=== PATIENT | female | born 1960 | race Caucasian/White ===

== ENCOUNTER → 2019-05-16 | Outpatient (CLI) | payer OTHER ==
[~2019-05-16] MED LIST: ALPHA LIPOIC A200 MG; ANAS1 PO; Ativan1 MG PO; CIPR500 PO; Celexa40 MG PO; HYDACE5 PO; LEVFLO500 PO; METO10 PO; MULVITMIND PO; ONDA4 PO; ONDA8ODT MM; OXYACE5T PO; PROM25 PO; PROM25S PR; Percocet 5-3251 EACH PO; RXHYDACE PO; RXONDA4ODT MM; RXPROM25 PO; Red Yeast Rice600 MG; UBID10
== END | disposition home or self-care (01) ==
LOC: PLD 08:09 → LAB SHORT 08:09
DX: D48.5 Neoplasm of uncertain behavior of skin (principal)
CPT/HCPCS: 88305

== ENCOUNTER → 2019-10-23 | Outpatient (CLI) | payer OTHER ==
[2019-10-25 19:09] LABS: HPV 16 Positive (Negative); HPV 18 Negative (Negative); HPV OTHER HR TYPES Negative (Negative)
== END | disposition home or self-care (01) ==
LOC: LAB 11:07 → LAB SHORT 11:07
PROVIDERS: Advanced Practice Midwife
DX: Z01.419 Encounter for gynecological examination (general) (routine) without abnormal findings (principal)
CPT/HCPCS: 87624; G0123

== ENCOUNTER 2020-10-07 06:10 | Emergency (ER) | payer OTHER ==
[~2020-10-07] VITALS: Ht 154.9 cm; Wt 77.1 kg
[~2020-10-07 06:10] MED LIST changes: +PRAVASTATIN SOD40 MG PO
[2020-10-07 06:59] LABS: BASOPHILS ABSOLUTE AUTO 0.08 K/mm3 (0.00-0.23); BASOPHILS PERCENT AUTO 1 % (0-2); EOSINOPHILS ABSOLUTE AUTO 0.22 K/mm3 (0.00-0.68); EOSINOPHILS PERCENT AUTO 2 % (0-6); Hematocrit 46.4 % (33.0-51.0); Hemoglobin 15.6 g/dL (11.5-16.0); IMMATURE GRAN ABSOLUTE AUTO 0.03 K/mm3 (0.00-0.10); IMMATURE GRAN PERCENT AUTO 0 % (0-1); LYMPHOCYTES ABSOLUTE AUTO 2.02 K/mm3 (0.84-5.20); LYMPHOCYTES PERCENT AUTO 21 % (21-46); MONOCYTES PERCENT AUTO 4 % (4-13); Mean Corpuscular HGB 31.1 pg (26.0-34.0); Mean Corpuscular HGB Conc 33.6 g/dL (31.5-36.5); Mean Corpuscular Volume 92 fL (80-100); Mean Platelet Volume 10.1 fL (9.1-12.4); NEUTROPHILS PERCENT AUTO 72 % (41-73); Platelet Count 257 K/mm3 (150-400); RDW Coefficient Variation 12.5 % (11.7-14.2); RDW Standard Deviation 42.4 fL (35.1-46.3); Red Blood Cell Count 5.02 M/mm3 (3.80-5.20); White Blood Cell Count 9.65 K/mm3 (4.00-11.30)
[2020-10-07 07:16] LABS: Alanine Aminotransfer (ALT/SGP 57 U/L (12-78); Albumin, Blood 4.1 g/dL (3.4-5.0); Albumin/Globulin Ratio 1.1 (0.8-1.8); Alk Phos 65 U/L (50-136); Anion Gap 9 mmol/L (6-16); Aspartate Aminotrans (AST/SGOT 28 U/L (12-37); Bilirubin, Total 0.3 mg/dL (0.1-1.0); Blood Urea Nitrogen 16 mg/dL (8-24); Bun/Creatinine Ratio 20.4 (12.0-20.0); CO2, Blood 26 mmol/L (21-32); Calcium, Blood 9.7 mg/dL (8.5-10.1); Chloride, Blood 103 mmol/L (98-108); Creatinine, Blood 0.78 mg/dL (0.40-1.00); Globulin, Blood 3.8 g/dL (2.2-4.0); Glomerular Filtration Rate >60 (60-); Glucose, Blood 190 mg/dL (70-99); Potassium, Blood 3.4 mmol/L (3.5-5.5); Sodium, Blood 138 mmol/L (136-145); Total Protein, Blood 7.9 g/dL (6.4-8.2)
[2020-10-07] MEDS ORDERED: ONDA4ODT MM (08:44)
[2020-10-07] MEDS ORDERED: Phenergan25 M1 PO (08:44)
[2020-10-09] MEDS ORDERED: PANT40 PO (08:06)
[2020-10-09] MEDS ORDERED: SUCR1 PO (08:06)
[2020-10-09] MEDS ORDERED: HYDR1TAB94 PO (08:06)
== END 2020-10-07 08:54 | disposition home or self-care (01) ==
LOC: ER 06:10
PROVIDERS: Emergency Medicine
DX: R10.13 Epigastric pain (principal); R10.33 Periumbilical pain; E78.00 Pure hypercholesterolemia, unspecified; Z88.0 Allergy status to penicillin; Z88.2 Allergy status to sulfonamides; Z79.899 Other long term (current) drug therapy
CPT/HCPCS: 36415; 74177; 80053; 83690; 85025; 93005; 93010; 96374-59; 96375; 99285-25; J1630; J2550; Q9967

== ENCOUNTER 2020-10-09 05:37 | Emergency (ER) | payer OTHER ==
[~2020-10-09] VITALS: Ht 167.6 cm; Wt 81.7 kg
[~2020-10-09 05:37] MED LIST changes: +ONDA4ODT MM; +Phenergan25 M1 PO
[2020-10-09] MEDS ORDERED: PANT40 PO ×2 (08:06)
[2020-10-09] MEDS ORDERED: SUCR1 PO ×2 (08:06)
[2020-10-09] MEDS ORDERED: HYDR1TAB94 PO ×2 (08:06)
== END 2020-10-09 08:36 | disposition home or self-care (01) ==
LOC: ER 05:37
DX: K29.70 Gastritis, unspecified, without bleeding (principal); E78.00 Pure hypercholesterolemia, unspecified; Z88.2 Allergy status to sulfonamides; Z88.0 Allergy status to penicillin; Z79.899 Other long term (current) drug therapy
CPT/HCPCS: 36415; 96374; 96375; 99283-25; A9270; C9113; J0780; J2405; J7030

== ENCOUNTER 2020-10-11 13:13 | Observation (INO) | payer OTHER ==
[~2020-10-11] VITALS: Ht 154.9 cm; Wt 77.1 kg
[~2020-10-11 13:13] MED LIST changes: +HYDR1TAB94 PO; +PANT40 PO; +SUCR1 PO
[2020-10-11 13:44] LABS: BASOPHILS ABSOLUTE AUTO 0.08 K/mm3 (0.00-0.23); BASOPHILS PERCENT AUTO 1 % (0-2); EOSINOPHILS ABSOLUTE AUTO 0.21 K/mm3 (0.00-0.68); EOSINOPHILS PERCENT AUTO 2 % (0-6); Hematocrit 48.2 % (33.0-51.0); Hemoglobin 16.4 g/dL (11.5-16.0); IMMATURE GRAN ABSOLUTE AUTO 0.07 K/mm3 (0.00-0.10); IMMATURE GRAN PERCENT AUTO 1 % (0-1); LYMPHOCYTES PERCENT AUTO 30 % (21-46); MONOCYTES ABSOLUTE AUTO 1.02 K/mm3 (0.16-1.47); MONOCYTES PERCENT AUTO 8 % (4-13); Mean Corpuscular HGB 31.2 pg (26.0-34.0); Mean Corpuscular Volume 92 fL (80-100); Mean Platelet Volume 9.9 fL (9.1-12.4); NEUTROPHILS ABSOLUTE AUTO 7.43 K/mm3 (1.96-9.15); NEUTROPHILS PERCENT AUTO 59 % (41-73); Platelet Count 297 K/mm3 (150-400); RDW Coefficient Variation 12.2 % (11.7-14.2); RDW Standard Deviation 41.6 fL (35.1-46.3); Red Blood Cell Count 5.25 M/mm3 (3.80-5.20); White Blood Cell Count 12.51 K/mm3 (4.00-11.30)
[2020-10-11 14:07] LABS: Albumin, Blood 3.9 g/dL (3.4-5.0); Bilirubin, Total 0.7 mg/dL (0.1-1.0); Bun/Creatinine Ratio 15.2 (12.0-20.0); Calcium, Blood 9.1 mg/dL (8.5-10.1); Creatinine, Blood 1.38 mg/dL (0.40-1.00); Globulin, Blood 3.8 g/dL (2.2-4.0); Potassium, Blood 3.1 mmol/L (3.5-5.5); Total Protein, Blood 7.7 g/dL (6.4-8.2); Troponin I 0.076 ng/mL (0.000-0.040)
[2020-10-11 15:16] LABS: CHOL/HDL RATIO 6.3; Cholesterol 323 mg/dL (50-200); HDL Cholesterol 51 mg/dL (>39); LDL/HDL RATIO 4.3; Low Density Lipoprotein Chol 222 mg/dL (0-110); Triglycerides 251 mg/dL (30-160); Very Low Density Lipoprot Chol 50 mg/dL (6-32)
--- NOTE | 2020-10-11 16:41 | NUR ---
CALLED TWICE AND ED NURSE WILL CALL LATER WHEN AVAILABLE
[2020-10-11 16:59] LABS: Source, Urine Clean Catch
[2020-10-11 17:02] LABS: Appearance, Urine Clear (Clear); Bilirubin, Urine Neg (Neg); Blood, Urine 2+ (Neg); Color, Urine Yellow (P-Yellow); Glucose Qualitative, Urine Neg (Neg); Ketones, Urine Neg (Neg); Leukocyte Esterase, Urine Neg (Neg); Nitrite, Urine Neg (Neg); Protein, Urine 1+ (Neg); Specific Gravity, Urine 1.005 (1.003-1.022); Urobilinogen, Urine NORM (Normal); pH, Urine 6.5 (5.0-8.0)
[2020-10-11 17:10] LABS: Bacteria Mod /hpf; Red Blood Cells, Urine 0-2 /hpf (0-2); Squamous Epithelial Cells Few /hpf (Few)
--- NOTE | 2020-10-11 18:34 | NUR ---
PT IS A 60YO WOMAN WHO IS ALERT AND ORIENTED. WHO CAME HERE FOR PRE-SYNCOPAL EPISODE. PT IS FULL CODE. PT BP STABLE. PT HAS A PMH OF PANCREATITIS, BREAST CANCER, HYPERLIPIDEMIA, AND HYPERTRIGLYCIDES. PT IS ON TELE NS PER TELE. NO O2; STABLE ON FEET; PT DID NOT HAD ANY FALLS AT HOME. SKIN INTACT. PT STATED SHE DRINKS BEER EVERY DAY ABOUT 16OZ AT A TIME; AND LAST DRINK WAS 3 WEEKS AGO, NOT HAD ANY SINCE THEN. PT HAS 18G ON RAC. DENIES ANY PAIN OR SOB. PT C/O OF NOT HAVING BM 5DAYS AGO BUT PASSING GAS. PT HAS MIRALAX PRN; PT STATED SHE WILL WAIT TONIGHT TO TAKE IT. PT RECEIVED K-RIDER FOR LOW K OF 3.1. PT HAS ELEVATED TROP OF 0.076 THAT IS DUE TO DEHYDRATION. BED IS IN THE LOWEST POSITION AND CALL LIGHT WITHIN REACH.
[2020-10-12 05:15] LABS: BASOPHILS ABSOLUTE AUTO 0.07 K/mm3 (0.00-0.23); BASOPHILS PERCENT AUTO 1 % (0-2); EOSINOPHILS ABSOLUTE AUTO 0.31 K/mm3 (0.00-0.68); EOSINOPHILS PERCENT AUTO 4 % (0-6); Hematocrit 44.2 % (33.0-51.0); Hemoglobin 14.8 g/dL (11.5-16.0); IMMATURE GRAN ABSOLUTE AUTO 0.03 K/mm3 (0.00-0.10); IMMATURE GRAN PERCENT AUTO 0 % (0-1); LYMPHOCYTES ABSOLUTE AUTO 2.93 K/mm3 (0.84-5.20); LYMPHOCYTES PERCENT AUTO 36 % (21-46); MONOCYTES ABSOLUTE AUTO 0.75 K/mm3 (0.16-1.47); MONOCYTES PERCENT AUTO 9 % (4-13); Mean Corpuscular HGB 31.4 pg (26.0-34.0); Mean Corpuscular HGB Conc 33.5 g/dL (31.5-36.5); Mean Corpuscular Volume 94 fL (80-100); Mean Platelet Volume 10.4 fL (9.1-12.4); NEUTROPHILS ABSOLUTE AUTO 4.16 K/mm3 (1.96-9.15); NEUTROPHILS PERCENT AUTO 50 % (41-73); Platelet Count 210 K/mm3 (150-400); RDW Coefficient Variation 12.3 % (11.7-14.2); RDW Standard Deviation 42.7 fL (35.1-46.3); Red Blood Cell Count 4.72 M/mm3 (3.80-5.20); White Blood Cell Count 8.25 K/mm3 (4.00-11.30)
[2020-10-12 05:38] LABS: Magnesium, Blood 2.1 mg/dL (1.6-2.4)
[2020-10-12 05:40] LABS: Alanine Aminotransfer (ALT/SGP 43 U/L (12-78); Albumin/Globulin Ratio 0.9 (0.8-1.8); Alk Phos 68 U/L (50-136); Anion Gap 4 mmol/L (6-16); Aspartate Aminotrans (AST/SGOT 25 U/L (12-37); Bilirubin, Total 0.6 mg/dL (0.1-1.0); Blood Urea Nitrogen 15 mg/dL (8-24); Bun/Creatinine Ratio 15.9 (12.0-20.0); CO2, Blood 23 mmol/L (21-32); Calcium, Blood 8.5 mg/dL (8.5-10.1); Chloride, Blood 111 mmol/L (98-108); Creatinine, Blood 0.95 mg/dL (0.40-1.00); Globulin, Blood 3.3 g/dL (2.2-4.0); Glomerular Filtration Rate >60 (60-); Glucose, Blood 100 mg/dL (70-99); Potassium, Blood 4.2 mmol/L (3.5-5.5); Sodium, Blood 138 mmol/L (136-145); Total Protein, Blood 6.3 g/dL (6.4-8.2)
--- NOTE | 2020-10-12 05:57 | NUR ---
PATIENT SLEPT WELL AFTER RECEIVING ONE DOSE OF NORCO FOR RUQ PAIN AT HS. SHE WANTED TO MAKE SURE THAT HOSPITALIST WAS AWARE THAT SHE QUIT HER CELEXA THAT SHE HAS TAKEN FOR YEARS COLD TURKEY A LITTLE OVER A WEEK AGO. OTHERWISE, NO CHANGES
--- NOTE | 2020-10-12 07:57 | NUR ---
pt sitting up in bed awake, a/ox3, pleasant and coopertive with care, follows commands well, denies any complaints of chest pain, or nausia states she feels much better, sleept off and on, lungs are clear t/o, resp even and unlaobred, no cough noted, hrr, tele in place running sr per monitor, see strip, no edema noted, ppp+1, cap refill <3sec, vs stable, afebrile, iv sites is clear and patent, btx4, abd flat soft nontender, voids without diff, reports no bm in 5 days, will give bowel care, skin c/w/d, juliet, aryan, call light in reach.
[2020-10-12 08:09] LABS: Troponin I 0.064 ng/mL (0.000-0.040)
--- NOTE | 2020-10-12 11:47 | NUR ---
pt reports she had a bm, is feeling ok, speaking on the phone, no acute changes. call light in reach.
--- NOTE | 2020-10-12 18:34 | NUR ---
SUMMARY PT IS A&O X4. NO ACUTE CHANGES THROUGH THE DAY. VSS, ON RA. PT IS INDEPENDENT IN THE ROOM. NO C/O CP/PRESSURE OR EPIGASTRIC PAIN. PT HAD QUESTIONS REGARDING HER CELEXA, SHE WAS ENC TO TO WRITE ALL QUESTIONS DOWN FOR THE PROVIDER. CELEXA WAS D/C THIS AM PER PT REQUEST.
--- NOTE | 2020-10-13 04:46 | NUR ---
SHIFT SUMMARY A/OX4, IND TO BATHROOM. PT REPORTS GREAT IMPROVEMENT IN PREVIOUS EPIGASTRIC PAIN. APPEARED TO SLEEP T/O THE NIGHT. VSS, NO ACUTE CHANGES AT THIS TIME. BED IN LOWEST POSITION WITH CALL LIGHT IN REACH. WILL CONTINUE TO MONITOR AND REPROT TO ONCOMING RN.
--- NOTE | 2020-10-13 14:45 | NUR ---
10/13/20- PER CHART REVIEW WITH DR. LINARES, PT IS STABLE TO DISCHARGE HOME. MET WITH PT AND SHE REPORTS THAT SHE WAS INDEPENDENT PRIOR TO COMING INTO THE HOSPITAL AND SHE HAD NOT CAREGIVERS OR HOME HEALTH. PT LIVES WITH HER PARTNER "LEOPOLDO" AND HER SON "CLAIR" ALSO CHECKS IN ON HER. SHE REPORTS THAT HE HOME IS A SINGLE STORY HOME, THAT HAS WORKING UTILITIES AND BARRIERS TO GETTING INTO THE HOME. PT STILL DRIVES AND IS ABLE TO TAKE HERSELF TO HER APPTS AND GET HER MEDICATIONS FROM [facility] IN [place]. PT DOES NOT HAVE A POA AND HER NEXT OF KIN IS PARTNER, LEOPOLDO. SHE DOES NOT HAVE ANY DME NEEDS. PT REQUESTED AN APPT BE MADE FOR HER WITH [facility] PRIOR TO HER DISCHARGING. SHE HAS AN APPT WITH [facility]Y ON 10/19/20 @ 12:00. REVIEWED ROBERT LETTER AND APPT TIME WITH PT. -SONIA
--- NOTE | 2020-10-13 15:47 | NUR ---
PATIENT DISCHARGED TO HOME WITH SPOUSE. IV SALINE LOCK REMOVED WITHOUT INCIDENT. VERBALIZED UNDERSTANDING OF D/C INSTRUCTIONS. OFF UNIT VIA W/C WITH D/C VOLUNTEER AT [id number].
== END 2020-10-13 15:40 | disposition home or self-care (01) ==
LOC: ER 13:13 → ERHOLD 13:14 → MEDS 17:28
PROVIDERS: Emergency Medicine; Internal Medicine; ADMIT Family Medicine
DX: R55 Syncope and collapse (principal); E86.0 Dehydration; N17.9 Acute kidney failure, unspecified; K85.90 Acute pancreatitis without necrosis or infection, unspecified; E78.5 Hyperlipidemia, unspecified; K27.9 Peptic ulcer, site unspecified, unspecified as acute or chronic, without hemorrhage or perforation; I24.8 Other forms of acute ischemic heart disease; E87.6 Hypokalemia; R73.03 Prediabetes; K59.00 Constipation, unspecified; F32.9 Major depressive disorder, single episode, unspecified; Z87.891 Personal history of nicotine dependence; Z85.3 Personal history of malignant neoplasm of breast
CPT/HCPCS: 36415; 80053; 80061; 81001; 82947; 83036; 83690; 83735; 84484; 85025; 93005; 93010; 96365; 96366; 96372; 96372-59; 96375; 99285-25; A9270; G0378; J1650; J3480; J7030

== ENCOUNTER 2020-12-03 06:45 | Day surgery (SDC) | payer OTHER ==
[~2020-12-03] VITALS: Ht 154.9 cm; Wt 71.8 kg
[~2020-12-03 06:45] MED LIST changes: +Acetaminophen650 M1 PO; +CITA20 PO; +Colace100 MG PO; +MIRALAX PO; +POTCHL20ER PO
== END 2020-12-03 08:48 | disposition home or self-care (01) ==
LOC: ORSCSDS 06:45
PROVIDERS: Surgery
PROC: 0DBL8ZX Excision of Transverse Colon, Via Natural or Artificial Opening Endoscopic, Diagnostic (ICD-10-PCS; principal; 2020-12-03 08:00)
PROC: 0DBC8ZX Excision of Ileocecal Valve, Via Natural or Artificial Opening Endoscopic, Diagnostic (ICD-10-PCS; principal; 2020-12-03 08:00)
PROC: 0DBH8ZX Excision of Cecum, Via Natural or Artificial Opening Endoscopic, Diagnostic (ICD-10-PCS; principal; 2020-12-03 08:00)
PROC: 0DBP8ZX Excision of Rectum, Via Natural or Artificial Opening Endoscopic, Diagnostic (ICD-10-PCS; principal; 2020-12-03 08:00)
PROC: 0DB68ZX Excision of Stomach, Via Natural or Artificial Opening Endoscopic, Diagnostic (ICD-10-PCS; principal; 2020-12-03 08:00)
PROC: 0DB48ZX Excision of Esophagogastric Junction, Via Natural or Artificial Opening Endoscopic, Diagnostic (ICD-10-PCS; principal; 2020-12-03 08:00)
DX: Z12.11 Encounter for screening for malignant neoplasm of colon (principal); Z86.010 Personal history of colon polyps; R10.13 Epigastric pain; D12.0 Benign neoplasm of cecum; K63.5 Polyp of colon; K62.1 Rectal polyp; K44.9 Diaphragmatic hernia without obstruction or gangrene; F32.9 Major depressive disorder, single episode, unspecified; E78.00 Pure hypercholesterolemia, unspecified; E55.9 Vitamin D deficiency, unspecified; Z79.899 Other long term (current) drug therapy
CPT/HCPCS: 88305; 88342; J2704; J7120

== ENCOUNTER → 2020-12-08 | Outpatient (CLI) | payer OTHER ==
[2020-12-09 13:11] LABS: HPV 16 Positive (Negative); HPV 18 Negative (Negative); HPV OTHER HR TYPES Negative (Negative)
== END ==
LOC: LAB 09:55 → LAB SHORT 09:55
PROVIDERS: Family Medicine
DX: Z01.419 Encounter for gynecological examination (general) (routine) without abnormal findings (principal); Z88.0 Allergy status to penicillin; Z88.2 Allergy status to sulfonamides
CPT/HCPCS: 87624; G0123

== ENCOUNTER → 2021-01-06 | Outpatient (CLI) | payer OTHER | END | disposition home or self-care (01) | LOC: LAB SHORT 13:51 → LAB 13:51 | DX: N87.1 Moderate cervical dysplasia (principal) | CPT/HCPCS: 88305; 88342 ==

== ENCOUNTER → 2021-02-01 | Outpatient (CLI) | payer OTHER | LOC: LAB SHORT 13:56 → LAB 13:56 | DX: D06.9 Carcinoma in situ of cervix, unspecified (principal); N72 Inflammatory disease of cervix uteri; Z88.0 Allergy status to penicillin; Z88.2 Allergy status to sulfonamides | CPT/HCPCS: 88305 ==

== ENCOUNTER → 2022-02-17 | Outpatient (CLI) | payer OTHER ==
[2022-02-18 15:10] LABS: HPV 16 Negative (Negative); HPV 18 Negative (Negative); HPV OTHER HR TYPES Negative (Negative)
== END | disposition home or self-care (01) ==
LOC: LAB SHORT 09:45 → LAB 09:45
PROVIDERS: Obstetrics & Gynecology
DX: Z01.419 Encounter for gynecological examination (general) (routine) without abnormal findings (principal)
CPT/HCPCS: 87624; G0123

== ENCOUNTER → 2023-05-23 | Outpatient (CLI) | payer OTHER ==
[2023-05-27 08:33] LABS: HPV GENOTYPE 16 Not Detected; HPV GENOTYPE 18 Not Detected; HPV HIGH RISK Not Detected; HPV SOURCE Cervical/Vag
== END ==
LOC: LAB SHORT 15:18 → LAB 15:18
PROVIDERS: Obstetrics & Gynecology
DX: Z01.419 Encounter for gynecological examination (general) (routine) without abnormal findings (principal)
CPT/HCPCS: 87624; G0123

== ENCOUNTER → 2023-08-31 | Outpatient (CLI) | payer OTHER ==
[2023-08-31 09:58] LABS: Bun/Creatinine Ratio 11.1 (12.0-20.0); Creatinine, Blood 0.99 mg/dL (0.40-1.00); Potassium, Blood 3.6 mmol/L (3.5-5.5)
[2023-08-31 10:47] LABS: BASOPHILS ABSOLUTE AUTO 0.05 K/mm3 (0.00-0.23); BASOPHILS PERCENT AUTO 1 % (0-2); EOSINOPHILS ABSOLUTE AUTO 0.01 K/mm3 (0.00-0.68); EOSINOPHILS PERCENT AUTO 0 % (0-6); Hematocrit 45.4 % (33.0-51.0); Hemoglobin 15.6 g/dL (11.5-16.0); IMMATURE GRAN ABSOLUTE AUTO 0.02 K/mm3 (0.00-0.10); IMMATURE GRAN PERCENT AUTO 0 % (0-1); LYMPHOCYTES ABSOLUTE AUTO 1.12 K/mm3 (0.84-5.20); LYMPHOCYTES PERCENT AUTO 12 % (21-46); MONOCYTES ABSOLUTE AUTO 0.24 K/mm3 (0.16-1.47); MONOCYTES PERCENT AUTO 3 % (4-13); Mean Corpuscular HGB 31.8 pg (26.0-34.0); Mean Corpuscular HGB Conc 34.4 g/dL (31.5-36.5); Mean Corpuscular Volume 93 fL (80-100); Mean Platelet Volume 11.3 fL (9.1-12.4); NEUTROPHILS ABSOLUTE AUTO 7.62 K/mm3 (1.96-9.15); NEUTROPHILS PERCENT AUTO 84 % (41-73); Platelet Count 249 K/mm3 (150-400); RDW Coefficient Variation 12.4 % (11.7-14.2); RDW Standard Deviation 42.4 fL (35.1-46.3); White Blood Cell Count 9.06 K/mm3 (4.00-11.30)
== END ==
LOC: LAB SHORT 09:47 → LAB 09:47
PROVIDERS: Physician Assistant
DX: R11.2 Nausea with vomiting, unspecified (principal)
CPT/HCPCS: 80048; 83690; 85025

== ENCOUNTER → 2023-09-01 | Outpatient (CLI) | payer OTHER | END | disposition home or self-care (01) | LOC: LAB SHORT 09:30 → LAB 09:30 | DX: R10.84 Generalized abdominal pain (principal) ==

== ENCOUNTER → 2024-07-02 | Outpatient (CLI) | payer MEDICARE, OTHER ==
[~2024-07-02] MED LIST changes: +METF500; +Zofran4 MG PO
[2024-07-07 15:46] LABS: HPV HIGH RISK BY TMA Not Detected; HPV SOURCE Cervical/Vag
== END ==
LOC: LAB 13:38 → LAB SHORT 13:38
PROVIDERS: Obstetrics & Gynecology
DX: Z01.419 Encounter for gynecological examination (general) (routine) without abnormal findings (principal)
CPT/HCPCS: G0123

== ENCOUNTER 2024-10-13 05:09 | Emergency (ER) | payer MEDICARE, OTHER ==
[~2024-10-13] VITALS: Ht 154.9 cm; Wt 66.7 kg
[2024-10-13] MEDS ORDERED: Morphine Sulfate 4 MG/1 ML Injection IV ONE (05:20)
[2024-10-13] MEDS ORDERED: DiphenhydrAMINE HCl 50 MG/ML 1ML Vial IV ONE (05:35)
[2024-10-13] MEDS ORDERED: Metoclopramide HCl 5MG / ML 2ML Vial IV ONE (05:35)
[2024-10-13 05:41] LABS: BASOPHILS ABSOLUTE AUTO 0.04 K/mm3 (0.00-0.23); BASOPHILS PERCENT AUTO 0 % (0-2); EOSINOPHILS ABSOLUTE AUTO 0.01 K/mm3 (0.00-0.68); EOSINOPHILS PERCENT AUTO 0 % (0-6); Hematocrit 49.5 % (33.0-51.0); Hemoglobin 17.2 g/dL (11.5-16.0); IMMATURE GRAN ABSOLUTE AUTO 0.05 K/mm3 (0.00-0.10); IMMATURE GRAN PERCENT AUTO 0 % (0-1); LYMPHOCYTES ABSOLUTE AUTO 0.88 K/mm3 (0.84-5.20); LYMPHOCYTES PERCENT AUTO 7 % (21-46); MONOCYTES PERCENT AUTO 2 % (4-13); Mean Corpuscular HGB 31.4 pg (26.0-34.0); Mean Corpuscular HGB Conc 34.7 g/dL (31.5-36.5); Mean Corpuscular Volume 90 fL (80-100); Mean Platelet Volume 10.9 fL (9.1-12.4); NEUTROPHILS ABSOLUTE AUTO 11.37 K/mm3 (1.96-9.15); NEUTROPHILS PERCENT AUTO 90 % (41-73); Platelet Count 289 K/mm3 (150-400); RDW Coefficient Variation 12.2 % (11.7-14.2); RDW Standard Deviation 40.3 fL (35.1-46.3); Red Blood Cell Count 5.48 M/mm3 (3.80-5.20); White Blood Cell Count 12.65 K/mm3 (4.00-11.30)
[2024-10-13 06:09] LABS: Magnesium, Blood 1.8 mg/dL (1.6-2.4)
[2024-10-13 06:10] LABS: Albumin, Blood 4.3 g/dL (3.4-5.0); Bilirubin, Total 0.5 mg/dL (0.1-1.0); Bun/Creatinine Ratio 16.3 (12.0-20.0); Calcium, Blood 9.7 mg/dL (8.5-10.1); Creatinine, Blood 0.67 mg/dL (0.40-1.00); Globulin, Blood 4.4 g/dL (2.2-4.0); Potassium, Blood 4.6 mmol/L (3.5-5.5); Total Protein, Blood 8.7 g/dL (6.4-8.2)
[2024-10-13] MEDS ORDERED: NS 1,000 ML IV SCH (06:40)
[2024-10-13] MEDS ORDERED: Mag Hydrox/AL Hydrox/Simeth 30 ML UDC PO ONE (06:45)
[2024-10-13] MEDS ORDERED: Lidocaine 2% Viscous Soln 15 ML UDC PO ONE (06:45)
[2024-10-13] MEDS ORDERED: Atropine/Scopalam/Hyoscam/PB 5 ML UDC PO ONE (06:45)
[2024-10-13 07:39] VITALS: BP 108/69
[2024-10-13 07:45] LABS: Source, Urine Clean Catch
[2024-10-13] MEDS ORDERED: ONDA4ODT MM (07:46)
[2024-10-13] MEDS ORDERED: FAMO20 PO (07:46)
[2024-10-13 07:52] LABS: Appearance, Urine Clear (Clear); Bilirubin, Urine Neg (Neg); Blood, Urine 3+ (Neg); Color, Urine Yellow (P-Yellow); Glucose Qualitative, Urine Neg (Neg); Ketones, Urine 2+ (Neg); Leukocyte Esterase, Urine Neg (Neg); Nitrite, Urine Neg (Neg); Protein, Urine 4+ (Neg); Specific Gravity, Urine 1.005 (1.003-1.022); Urobilinogen, Urine NORM (Normal)
[2024-10-13 08:15] LABS: Bacteria Few /hpf; Squamous Epithelial Cells Few /hpf (Few)
[2024-10-13 08:16] LABS: Amorphous Light (0-Heavy)
== END 2024-10-13 07:53 | disposition home or self-care (01) ==
LOC: ER 05:09
PROVIDERS: Emergency Medicine
DX: K20.90 Esophagitis, unspecified without bleeding (principal); K29.70 Gastritis, unspecified, without bleeding; Z79.84 Long term (current) use of oral hypoglycemic drugs; Z79.899 Other long term (current) drug therapy; Z88.0 Allergy status to penicillin; Z88.2 Allergy status to sulfonamides; Z87.891 Personal history of nicotine dependence; Z55.6 Problems related to health literacy
CPT/HCPCS: 74177; 80053; 81001; 83690; 83735; 85025; 93005; 93010; 96361; 96374-59; 96375; 99285-25; A9270; J1200; J2270; J2765; J7030; Q9967